=== PATIENT | male | born 1965 | race Caucasian/White ===

== ENCOUNTER → 2021-10-02 | Day surgery (SDC) | payer OTHER ==
[~2021-10-02] VITALS: Ht 180.3 cm; Wt 108.0 kg
[~2021-10-02] MED LIST: BACLOFEN 20MG T20 MG PO; GABAPENTIN600 MG PO; LASIX20 MG PO; MINIPRES1 MG PO; OMEPRAZOLE40 MG PO; REMERON15 MG PO
[2021-10-02 07:45] LABS: HCT 46.7 % (42.0-52.0); HGB 16.2 g/dl (13.2-18.0); MCH 31.3 pg (25.0-31.0); MCHC 34.7 g/dL (32.0-36.0); MCV 90.3 fL (78.0-100.0); MPV 10.2 fL (6.0-9.5); RBC 5.17 M/uL (4.70-6.00); WBC 8.9 K/uL (4.0-10.5)
[2021-10-02 08:19] LABS: ALBUMIN 4.4 g/dL (3.4-5.0); BILIRUBIN - TOTAL 1.4 mg/dL (0.2-1.0); BUN/CREAT RATIO (CALC) 15.8 RATIO; CREATININE 0.95 mg/dL (0.67-1.17); GLOBULIN (CALCULATION) 3.8 g/dL; POTASSIUM 3.6 mmol/L (3.5-5.1); TOTAL PROTEIN 8.2 g/dL (6.4-8.2)
== END | disposition home or self-care (01) ==
LOC: FAS 09-25 08:00 → EDBD 09-25 08:00 → FAS 07:09
PROVIDERS: Surgery
DX: K21.00 Gastro-esophageal reflux disease with esophagitis, without bleeding (principal); K31.9 Disease of stomach and duodenum, unspecified; Z12.11 Encounter for screening for malignant neoplasm of colon; Z80.0 Family history of malignant neoplasm of digestive organs; Z90.49 Acquired absence of other specified parts of digestive tract; J44.9 Chronic obstructive pulmonary disease, unspecified; K29.70 Gastritis, unspecified, without bleeding
CPT/HCPCS: 43239; G0105; 36415; 80053; J2250; J2704; J7120